=== PATIENT | male | born 1970 | race Caucasian/White ===

== ENCOUNTER → 2024-09-26 | Emergency (ER) | payer OTHER ==
[~2024-09-26] VITALS: Ht 170.2 cm; Wt 93.4 kg
[~2024-09-26] MED LIST: ACETAMINOPHEN ES 500 MG TABLET ONE; TDAP [DIPH/PERTUSSIS/TET] 0.5 ML VIAL IM ONE
[2024-09-26 13:45] VITALS: BP 126/70; TEMP 98.1; O2SAT 100
[2024-09-26] MEDS: TDAP [DIPH/PERTUSSIS/TET] 0.5 ML VIAL IM ONE (13:56)
[2024-09-26] MEDS: ACETAMINOPHEN ES 500 MG TABLET PO ONE (13:57)
== END ==
LOC: ER 13:38
DX: S00.81XA Abrasion of other part of head, initial encounter (principal); F10.129 Alcohol abuse with intoxication, unspecified; Y90.9 Presence of alcohol in blood, level not specified; R00.0 Tachycardia, unspecified; R51.9 Headache, unspecified; W18.39XA Other fall on same level, initial encounter; Y93.89 Activity, other specified; Y92.89 Other specified places as the place of occurrence of the external cause; Y99.8 Other external cause status
CPT/HCPCS: 99285; 70450; 90471; 90715; 70486; A6403